=== PATIENT | female | born 1950 | race Caucasian/White ===

== ENCOUNTER → 2023-02-19 | Outpatient (CLI) | payer MEDICARE, OTHER, SELFPAY ==
--- NOTE | 2023-02-19 10:53 | VDLE_ITS ---
Reason For Study: Localized Swelling LLE RIGHT LEFT CFV is compressible, spontaneous, phasic, GSV is normal. competent and demonstrates normal CFV is compressible, spontaneous, phasic, augmentation. competent, and demonstrates normal Procedure augmentation. This is a venous duplex using B-mode, color FV is compressible, spontaneous, phasic, flow and spectral Doppler. competent and demonstrates normal Exam performed in department. augmentation. The study was technically difficult. POP V is compressible, spontaneous, phasic, A preliminary report was called and/or faxed competent and demonstrates normal to Dr. Carbone. augmentation. T/P Trunk is compressible. PTV is compressible. LT PerV is compressible. VL/Venous Duplex US, Unilateral Interpretation Summary There is no evidence of left lower extremity deep vein thrombosis. Left great s aphenous vein appears patent and compressible segmentally. Normal flow patterns right common femoral vein This examination was noted to be technically difficult Ordering Physician: Dante Carbone Referring Physician: Mya Palacios Performed By: Kaye Arndt, NOLAN, RVT
== END | disposition home or self-care (01) ==
LOC: CVS 10:50
PROVIDERS: PCP Nurse Practitioner Adult Health; Referring Provider Student in an Organized Health Care Education/Training Program; Visit Provider Student in an Organized Health Care Education/Training Program
DX: R22.42 Localized swelling, mass and lump, left lower limb (principal)
CPT/HCPCS: 93971